=== PATIENT | male | born 1980 | race Caucasian/White ===

== ENCOUNTER 2016-07-13 14:12 | Emergency (ER) | payer OTHER ==
[~2016-07-13 14:12] MED LIST: SULAR8.5 MG PO; THERAGRAN TAB1 EA PO
[2016-07-13 15:47] LABS: RED BLOOD COUNT 5.63 M/UL (4.20-5.50); WHITE BLOOD COUNT 19.4 K/UL (4.5-11.0)
[2016-07-13 16:09] LABS: BUN/CREATININE RATIO 11 (0-10)
== END 2016-07-13 20:02 | disposition short-term general hospital (02) ==
LOC: ER1 14:12
PROVIDERS: Emergency Medicine
DX: N13.2 Hydronephrosis with renal and ureteral calculous obstruction (principal); K80.20 Calculus of gallbladder without cholecystitis without obstruction
CPT/HCPCS: 36415; 80053; 81001; 83690; 85025; 87040; 87086; 96361; 96365; 96375; 96376; 99285; J0696; J1885; J2405; J7050